=== PATIENT | male | born 1990 | race Caucasian/White ===

== ENCOUNTER 2016-11-03 12:40 | Inpatient (IN) | payer OTHER ==
[2016-11-03 12:54] VITALS: BMI 23.7
[2016-11-03] MEDS ORDERED: diazePAM 5 MG TABLET PO SCH (22:00)
--- NOTE | 2016-11-03 22:25 | HP ---
COWS - Scale Resting Pulse: 1= [place] 81-100 Sweatin=Flushed/Facial Moisture Restless Observation: 1= Difficult to Sit Still Pupil Size: 0= Normal to Room Light Bone or Joint Aches: 1= Mild Discomfort Runny Nose/ Eye Tearin= Runny Nose/Eyes GI Upset > 30mins: 1= Stomach Cramp Tremor Observation: 2= Slight Tremor Visible Yawning Observation: 1= 1-2x During Session Anxiety or Irritability: 4=Extreme Anxiety Goose Flesh Skin: 3=Piloerection COWS Score: 18 CIWA Score - CIWA Score Nausea/Vomitin Muscle Tremors: 3 Anxiety: 4-Mod. Anxious/Guarded Agitation: 4-Moderately Restless Paroxysmal Sweats: 1-Minimal Palms Moist Orientation: 1-Uncertain about Date Tacttile Disturbances: 0-None Auditory Disturbances: 0-None Visual Disturbances: 0-None Headache: 1-Very Mild CIWA-Ar Total Score: 16 Admission ROS BHS - HPI Chief Complaint: WITHDRAWAL SYMPTOMS Allergies/Adverse Reactions: Allergies Allergy/AdvReac Type Severity Reaction Status Date / Time No Known Allergies Allergy Verified 11/03/16 22:23 History of Present Illness: 26 Y.O. MAN WITH A 5 YEAR HISTORY OF ALCOHOL AND DRUG DEPENDENCE IS SEEKING DETOX. HE WAS AT [facility] FOR DETOX OVER THE WEEKEND BUT DID NOT COMPLETE TREATMENT. Exam Limitations: No Limitations - Ebola screening Have you traveled outside of the country in the last 21 days: No Have you been sick,other than usual withdrawal symptoms: No - Review of Systems Constitutional: Chills, Night Sweats, Changes in sleep EENT: reports: Tearing, Nose Congestion, Dental Problems (CAVITY) Respiratory: reports: No Symptoms reported Cardiac: reports: No Symptoms Reported GI: reports: Poor Appetite : reports: Other (HESITANCY) Musculoskeletal: reports: Muscle Pain, Neck Pain Integumentary: reports: No Symptoms Reported Neuro: reports: Headache, Tremors Endocrine: reports: Excessive Sweating (OVERACTIVE THYROID) Hematology: reports: No Symptoms Reported Psychiatric: reports: Judgement Intact, Mood/Affect Appropiate, Anxious Other Systems: Reviewed and Negative Patient History - Patient Medical History Hx Anemia: No Hx Asthma: No Hx Chronic Obstructive Pulmonary Disease (COPD): No Hx Cancer: No Hx Cardiac Disorders: No Hx Congestive Heart Failure: No Hx Hypertension: No Hx Hypercholesterolemia: No Hx Pacemaker: No HX Cerebrovascular Accident: No Hx Seizures: No Hx Dementia: No Hx Diabetes: No Hx Gastrointestinal Disorders: No Hx Liver Disease: No Hx Genitourinary Disorders: No Hx Sexually Transmitted Disorders: No Hx Renal Disease (ESRD): No Hx Thyroid Disease: Yes (HYPERACTIVE THYROID;) Hx Human Immunodeficiency Virus (HIV): No (NEG ) Hx Hepatitis C: Yes (NOT TREATED ) Hx Depression: No (H/O ANXIETY ) Hx Suicide Attempt: No Hx Bipolar Disorder: No Hx Schizophrenia: No - Patient Surgical History Past Surgical History: No - PPD History Previous Implant?: Yes Documented Results: Negative w/o proof PPD to be Administered?: Yes - Reproductive History Patient is a Female of Child Bearing Age (11 -55 yrs old): No - Smoking Cessation Smoking history: Current some day smoker Have you smoked in the past 12 months: Yes Aproximately how many cigarettes per day: 3 Hx Chewing Tobacco Use: No Initiated information on smoking cessation: Yes 'Breaking Loose' booklet given: 11/03/16 - Substance & Tx. History Hx Alcohol Use: Yes Hx Substance Use: Yes Substance Use Type: Alcohol, Heroin, Tranquilizers Hx Substance Use Treatment: Yes (DETOX ) - Substances Abused Alcohol Route: Oral Frequency: Daily Amount used: 1 PINT LIQUOR Age of first use: 15 Date of Last Use: 10/27/16 Heroin Route: Injection Frequency: Daily Amount used: 5-10 BAGS Age of first use: 21 Date of Last Use: 11/03/16 Alprazolam (Xanax) Route: Oral Frequency: Daily Amount used: 4-6 STICKS Age of first use: 19 Date of Last Use: 11/02/16 Family Disease History - Family Disease History Family History: Denies Admission Physical Exam S - Vital Signs Vital Signs: Vital Signs - 24 hr 11/03/16 12:52 Temperature 97.9 F Pulse Rate 90 Respiratory 20 Rate Blood Pressure 112/73 - Physical General Appearance: Yes: Tremorous, Irritable, Anxious HEENTM: Yes: Hearing grossly Normal, Normocephalic, Normal Voice, Nasal Congestion Respiratory: Yes: Chest Non-Tender, Lungs Clear, Normal Breath Sounds, No Respiratory Distress, No Accessory Muscle Use Neck: Yes: No masses,lesions,Nodules, Trachea in good position Breast: Yes: Breast Exam Deferred Cardiology: Yes: Regular Rhythm, Regular Rate, S1, S2 Abdominal: Yes: Non Tender, Soft Genitourinary: Yes: Hesitency Back: Yes: Normal Inspection Musculoskeletal: Yes: Back pain Extremities: Yes: Tremors 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: Yes: Alert, Normal Mood/Affect, Normal Response Integumentary: Yes: Normal Color, Dry, Warm, Track Hay Lymphatic: Yes: Within Normal Limits - Diagnostic (1) Alcohol dependence with uncomplicated withdrawal Current Visit: Yes Status: Chronic (2) Opioid dependence with withdrawal Current Visit: Yes Status: Chronic (3) Sedative, hypnotic or anxiolytic dependence with withdrawal, uncomplicated Current Visit: Yes Status: Chronic Cleared for Admission [facility] - Detox or Rehab [facility] Level of Care: Medically Managed Detox Regimen/Protocol: Methadone/Valium [facility] Breath Alcohol Content Breath Alcohol Content: 0 Urine Drug Screen - Results Drug Screen Negative: No Urine Drug Screen Results: OPI-Opiates, MDMA-Ecstasy, BZO-Benzodiazepines, MTD- Methadone, TCA-Tricyclic Antidepress, OXY-Oxycodone
[2016-11-03] MEDS ORDERED: ACETAMINOPHEN 325 MG TABLET (FP) PO PRN (22:38)
[2016-11-03] MEDS ORDERED: MAGNESIUM CITRATE 300 ML BOTTLE PO PRN (22:38)
[2016-11-03] MEDS ORDERED: P-EPHED 60MG/TRIPROLIDI 2.5MG TABLET PO PRN (22:38)
[2016-11-03] MEDS ORDERED: guaiFENesin/D-METHORPHAN HB 10 ML UNIT-DOSE CUPS PO PRN (22:38)
[2016-11-03] MEDS ORDERED: diazePAM 5 MG TABLET PO PRN (22:38)
[2016-11-03] MEDS ORDERED: MAGNESIUM HYDROX 2400MG/30ML ORAL SUSPENSION 30 ML CUP PO PRN (22:38)
[2016-11-03] MEDS ORDERED: MAG HYDROX/AL HYDROX/SIMETH 30 ML UNIT-DOSE CUP PO PRN (22:38)
[2016-11-03] MEDS ORDERED: METHADONE HCL 10 MG TABLET (FOR DETOX USE ONLY) PO ONE ×2 (22:38→23:00)
[2016-11-03] MEDS ORDERED: IBUPROFEN 400 MG TABLET (FP) PO PRN (22:38)
[2016-11-03] MEDS ORDERED: diazePAM 5 MG TABLET PO ONE (22:38)
[2016-11-03] MEDS ORDERED: LOPERAMIDE HCL 2 MG CAPSULE PO PRN (22:38)
[2016-11-04] MEDS ORDERED: METHADONE HCL 10 MG TABLET (FOR DETOX USE ONLY) PO ONE ×3 (00:53→23:00)
[2016-11-04] MEDS ORDERED: diazePAM 5 MG TABLET PO ONE (00:53)
[2016-11-04] MEDS: diazePAM 5 MG TABLET PO SCH ×3 (05:41→22:12)
[2016-11-04] MEDS: diazePAM 5 MG TABLET PO PRN ×2 (08:58→17:27)
--- NOTE | 2016-11-04 09:53 | PN ---
[facility] CIWA - CIWA Score Nausea/Vomitin-No Nausea/No Vomiting Muscle Tremors: 4-Moderate,w/Arms Extend Anxiety: 4-Mod. Anxious/Guarded Agitation: 4-Moderately Restless Paroxysmal Sweats: 1-Minimal Palms Moist Orientation: 0-Oriented Tacttile Disturbances: 3-Moderate Itch/Numb/Burn Auditory Disturbances: 0-None Visual Disturbances: 0-None Headache: 0-None Present CIWA-Ar Total Score: 16 BHS COWS - Scale Resting Pulse: 0= [place] 80 or Below Sweatin=Flushed/Facial Moisture Restless Observation: 3= Extraneous Movement Pupil Size: 2= Moderately Dilated Bone or Joint Aches: 4=Acute Joint/Muscle Pain Runny Nose/ Eye Tearin= Nasal Congestion GI Upset > 30mins: 1= Stomach Cramp Tremor Observation of Outstretched Hands: 1= Tremor Falls, Not Seen Yawning Observation: 2= >3x During Session Anxiety or Irritability: 2=Irritable/Anxious Goose Flesh Skin: 0=Smooth Skin COWS Score: 18 S Progress Note (SOAP) Subjective: ANXIETY,SWEATS/CHILLS,FATIGUE. Objective: 11/04/16 09:53 Vital Signs Temperature 97.9 F 11/04/16 06:23 Pulse Rate 77 11/04/16 06:23 Respiratory Rate 16 11/04/16 06:23 Blood Pressure 108/74 11/04/16 06:23 O2 Sat by Pulse Oximetry (%) LABS PENDING Assessment: 11/04/16 09:53 WITHDRAWAL SX Plan: CONTINUE DETOX
[2016-11-04] MEDS ORDERED: METHADONE HCL 10 MG TABLET (FOR DETOX USE ONLY) PO SCH (10:00)
[2016-11-04] MEDS: PRENATAL VITAMINS W/ FOLIC ACID TABLET (FP) PO SCH (10:09)
[2016-11-04] MEDS: NICOTINE POLACRILEX 2 MG GUM BC PRN ×2 (10:11→15:14)
[2016-11-04 10:39] LABS: MCH 28.7 pg (25.7-33.7); MEAN CELL VOLUME 84.1 fl (80-96); MEAN PLT VOLUME 9.7 fl (7.5-11.1); PLATELET COUNT 224 K/MM3 (134-434); RDW 13.3 % (11.9-15.9); WHITE BLOOD COUNT 8.6 K/mm3 (4.0-10.0)
[2016-11-04 10:55] LABS: ALK PHOS 69 U/L (45-117); ANION GAP 5 (8-16); BILIRUBIN,TOTAL 1.5 mg/dL (0.2-1.0); CALCIUM 9.2 mg/dL (8.5-10.1); CO2 29 mmol/L (21-32); GLUCOSE,RANDOM 114 mg/dL (74-106); SGOT/AST 38 U/L (15-37); SGPT/ALT 91 U/L (12-78); TOT PROT 7.5 g/dl (6.4-8.2)
--- NOTE | 2016-11-04 11:45 | CONSULT ---
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 Substance Abuse History: Reports drinking since 15 years old (1 pint of hard liquors),heroin iv since [age] years old (5-10 bags daily) and Xanax since 19 years old (406 sticks daily).Longest abstinence -6 months. Medical History: Hep C,Hyperthyroidism. Psychiatric History: Denies psychiatric history,but reports some anxiety, sleeping difficulties on and off.He was prescribed Seroquel 50 mg po hs as needed while in outpatient rehab recently with good response. Physical/Sexual Abuse/Trauma History: denies Mental Status Exam - Mental Status Exam Alert and Oriented to: Time, Place, Person Cognitive Function: Grossly Intact Patient Appearance: Unkempt Mood: Sad Affect: Mood Congruent Patient Behavior: Cooperative Speech Pattern: Clear Voice Loudness: Normal Thought Process: Goal Oriented Thought Disorder: Not Present Hallucinations: Denies Suicidal Ideation: Denies Homicidal Ideation: Denies Insight/Judgement: Fair Sleep: Difficulty falling asleep Appetite: Good Muscle strength/Tone: Normal Gait/Station: Normal Psychiatric Findings - Problem List ([place] 1, 2,3) (1) Alcohol dependence with uncomplicated withdrawal Current Visit: Yes Status: Chronic (2) Opioid dependence with withdrawal Current Visit: Yes Status: Chronic (3) Sedative, hypnotic or anxiolytic dependence with withdrawal, uncomplicated Current Visit: Yes Status: Chronic (4) Substance induced mood disorder Current Visit: Yes Status: Chronic - Initial Treatment Plan Initial Treatment Plan: Seroquel 50 mg po hs.
--- NOTE | 2016-11-04 11:47 | EKG ---
Test Reason : Blood Pressure : / mmHG Vent. Rate : 057 BPM Atrial Rate : 057 BPM P-R Int : 144 ms QRS Dur : 088 ms QT Int : 436 ms P-R-T Axes : 035 055 052 degrees QTc Int : 424 ms SINUS BRADYCARDIA OTHERWISE NORMAL ECG NO PREVIOUS ECGS AVAILABLE Confirmed by SEAN PAULINO, KARINA ([id number]) on 11/04/2016 11:47:10 AM Referred By: Confirmed By:KARINA ESTRADA MD
[2016-11-04] MEDS: hydrOXYzine PAMOATE 50 MG CAPSULE (FP) PO PRN (13:43)
[2016-11-04] MEDS: THIAMINE HCL 100 MG TABLET (FP) PO SCH (22:12)
[2016-11-04] MEDS: QUEtiapine FUMARATE 50 MG TABLET PO SCH (22:12)
[2016-11-05] MEDS: diazePAM 5 MG TABLET PO SCH ×3 (05:37→22:19)
[2016-11-05] MEDS: diazePAM 5 MG TABLET PO PRN ×2 (08:46→17:29)
[2016-11-05] MEDS ORDERED: METHADONE HCL 5 MG TABLET (FOR DETOX USE ONLY) PO SCH (10:00)
[2016-11-05] MEDS ORDERED: METHADONE HCL 10 MG TABLET (FOR DETOX USE ONLY) PO SCH (10:00)
[2016-11-05] MEDS ORDERED: diazePAM 5 MG TABLET PO SCH (10:00)
--- NOTE | 2016-11-05 10:13 | PN ---
[facility] CIWA - CIWA Score Nausea/Vomitin-No Nausea/No Vomiting Muscle Tremors: 4-Moderate,w/Arms Extend Anxiety: 4-Mod. Anxious/Guarded Agitation: 4-Moderately Restless Paroxysmal Sweats: 1-Minimal Palms Moist Orientation: 0-Oriented Tacttile Disturbances: 3-Moderate Itch/Numb/Burn Auditory Disturbances: 0-None Visual Disturbances: 0-None Headache: 0-None Present CIWA-Ar Total Score: 16 BHS COWS - Scale Resting Pulse: 0= [place] 80 or Below Sweatin= Chills/Flushing Restless Observation: 3= Extraneous Movement Pupil Size: 2= Moderately Dilated Bone or Joint Aches: 4=Acute Joint/Muscle Pain Runny Nose/ Eye Tearin= Nasal Congestion GI Upset > 30mins: 1= Stomach Cramp Tremor Observation of Outstretched Hands: 2= Slight Tremor Visible Yawning Observation: 1= 1-2x During Session Anxiety or Irritability: 2=Irritable/Anxious Goose Flesh Skin: 0=Smooth Skin COWS Score: 17 S Progress Note (SOAP) Subjective: ANXIETY,SWEATS,FATIGUE. Objective: 11/05/16 10:13 Vital Signs Temperature 96.8 F L 11/05/16 10:12 Pulse Rate 74 11/05/16 10:12 Respiratory Rate 18 11/05/16 10:12 Blood Pressure 110/76 11/05/16 10:12 O2 Sat by Pulse Oximetry (%) Laboratory Last Values WBC 8.6 K/mm3 (4.0-10.0) 11/04/16 06:00 RBC 5.25 M/mm3 (4.00-5.60) 11/04/16 06:00 Hgb 15.0 GM/dL (11.7-16.9) 11/04/16 06:00 Hct 44.2 % (35.4-49) 11/04/16 06:00 MCV 84.1 fl (80-96) 11/04/16 06:00 MCHC 34.0 g/dl (32.0-35.9) 11/04/16 06:00 RDW 13.3 % (11.9-15.9) 11/04/16 06:00 Plt Count 224 K/MM3 (134-434) 11/04/16 06:00 MPV 9.7 fl (7.5-11.1) 11/04/16 06:00 Sodium 134 mmol/L (136-145) L 11/04/16 06:00 Potassium 4.0 mmol/L (3.5-5.1) 11/04/16 06:00 Chloride 100 mmol/L (98-107) 11/04/16 06:00 Carbon Dioxide 29 mmol/L (21-32) 11/04/16 06:00 Anion Gap 5 (8-16) L 11/04/16 06:00 BUN 10 mg/dL (7-18) 11/04/16 06:00 Creatinine 1.0 mg/dL (0.7-1.3) 11/04/16 06:00 Creat Clearance w eGFR > 60 (>60) 11/04/16 06:00 Random Glucose 114 mg/dL (74-106) H 11/04/16 06:00 Calcium 9.2 mg/dL (8.5-10.1) 11/04/16 06:00 Total Bilirubin 1.5 mg/dL (0.2-1.0) H 11/04/16 06:00 AST 38 U/L (15-37) H 11/04/16 06:00 ALT 91 U/L (12-78) H 11/04/16 06:00 Alkaline Phosphatase 69 U/L (45-117) 11/04/16 06:00 Total Protein 7.5 g/dl (6.4-8.2) 11/04/16 06:00 Albumin 4.0 g/dl (3.4-5.0) 11/04/16 06:00 RPR Titer Nonreactive (NONREACTIVE) 11/04/16 06:00 Assessment: 11/05/16 10:13 WITHDRAWAL SX Plan: CONTINUE DETOX
[2016-11-05] MEDS: PRENATAL VITAMINS W/ FOLIC ACID TABLET (FP) PO SCH (10:14)
[2016-11-05] MEDS: THIAMINE HCL 100 MG TABLET (FP) PO SCH (22:18)
[2016-11-05] MEDS: QUEtiapine FUMARATE 50 MG TABLET PO SCH (22:19)
[2016-11-05] MEDS: diphenhydrAMINE HCL 50 MG CAPSULE PO PRN (23:10)
[2016-11-06] MEDS: diazePAM 5 MG TABLET PO PRN ×3 (05:55→17:46)
[2016-11-06] MEDS: diazePAM 5 MG TABLET PO SCH ×2 (10:12→22:29)
[2016-11-06] MEDS: PRENATAL VITAMINS W/ FOLIC ACID TABLET (FP) PO SCH (10:12)
[2016-11-06] MEDS: METHADONE HCL 5 MG TABLET (FOR DETOX USE ONLY) PO SCH (10:12)
--- NOTE | 2016-11-06 10:36 | PN ---
S Progress Note (SOAP) Subjective: ANXIETY,FATIGUE, HEADACHE,INTERMITTENT SLEEP Objective: 11/06/16 10:36 Laboratory Last Values WBC 8.6 K/mm3 (4.0-10.0) 11/04/16 06:00 RBC 5.25 M/mm3 (4.00-5.60) 11/04/16 06:00 Hgb 15.0 GM/dL (11.7-16.9) 11/04/16 06:00 Hct 44.2 % (35.4-49) 11/04/16 06:00 MCV 84.1 fl (80-96) 11/04/16 06:00 MCHC 34.0 g/dl (32.0-35.9) 11/04/16 06:00 RDW 13.3 % (11.9-15.9) 11/04/16 06:00 Plt Count 224 K/MM3 (134-434) 11/04/16 06:00 MPV 9.7 fl (7.5-11.1) 11/04/16 06:00 Sodium 134 mmol/L (136-145) L 11/04/16 06:00 Potassium 4.0 mmol/L (3.5-5.1) 11/04/16 06:00 Chloride 100 mmol/L (98-107) 11/04/16 06:00 Carbon Dioxide 29 mmol/L (21-32) 11/04/16 06:00 Anion Gap 5 (8-16) L 11/04/16 06:00 BUN 10 mg/dL (7-18) 11/04/16 06:00 Creatinine 1.0 mg/dL (0.7-1.3) 11/04/16 06:00 Creat Clearance w eGFR > 60 (>60) 11/04/16 06:00 Random Glucose 114 mg/dL (74-106) H 11/04/16 06:00 Calcium 9.2 mg/dL (8.5-10.1) 11/04/16 06:00 Total Bilirubin 1.5 mg/dL (0.2-1.0) H 11/04/16 06:00 AST 38 U/L (15-37) H 11/04/16 06:00 ALT 91 U/L (12-78) H 11/04/16 06:00 Alkaline Phosphatase 69 U/L (45-117) 11/04/16 06:00 Total Protein 7.5 g/dl (6.4-8.2) 11/04/16 06:00 Albumin 4.0 g/dl (3.4-5.0) 11/04/16 06:00 RPR Titer Nonreactive (NONREACTIVE) 11/04/16 06:00 Vital Signs Temperature 96.1 F L 11/06/16 09:43 Pulse Rate 75 11/06/16 09:43 Respiratory Rate 18 11/06/16 09:43 Blood Pressure 98/67 11/06/16 09:43 O2 Sat by Pulse Oximetry (%) Assessment: 11/06/16 10:36 WITHDRAWAL SX Plan: CONTINUE DETOX
[2016-11-06] MEDS: MENTHOL/PHENOL 1 EACH UD MM PRN ×2 (12:57→17:46)
--- NOTE | 2016-11-06 15:08 | PN ---
Psychiatric Progress Note Vital Signs: Vital Signs Period Temp Pulse Resp BP Sys/Johnson Pulse Ox Last 24 Hr 96.0 F-97.5 F 66-77 16-19 93-113/60-76 Date of Session: 11/06/16 Chief Complaint:: "Sleep is still big problem and my mood is unstable." HPI: Patient addressed Alcohol,Opioid and Anxiolytic dependence comorbid with Substance induced mood disorder. ROS: Unremarkable. Current Medications: Active Medications Generic Name Dose Route Start Last Admin Trade Name Freq PRN Reason Stop Dose Admin Acetaminophen 650 mg 11/03/16 22:38 Tylenol - PO Q4H PRN FEVER OR PAIN Al Hydroxide/Mg Hydroxide 30 ml 11/03/16 22:38 Mylanta Oral Suspension - PO Q6H PRN DYSPEPSIA Diazepam 10 mg 11/04/16 00:53 11/06/16 12:56 Valium - PO 11/07/16 00:53 10 mg Q4H PRN Administration WITHDRAWAL(CONT SUBST) Diazepam 5 mg 11/06/16 10:00 11/06/16 10:12 Valium - PO 11/07/16 22:01 5 mg BID HODA Administration Diazepam 5 mg 11/08/16 10:00 Valium - PO 11/08/16 10:01 DAILY HODA Diphenhydramine HCl 50 mg 11/03/16 22:38 11/05/16 23:10 Benadryl - PO 50 mg HSMR1 PRN Administration INSOMNIA Eucalyptus/Menthol/Phenol/Sorbitol 1 each 11/03/16 22:38 11/06/16 12:57 Cepastat Lozenge - MM 1 each Q4H PRN Administration SORE THROAT Guaifenesin 10 ml 11/03/16 22:38 Robitussin Dm - PO Q6H PRN COUGH Hydroxyzine Pamoate 50 mg 11/03/16 22:38 11/04/16 13:43 Vistaril - PO 50 mg Q4H PRN Administration AGITATION Ibuprofen 400 mg 11/03/16 22:38 Motrin - PO Q6H PRN SEVERE PAIN Loperamide HCl 4 mg 11/03/16 22:38 Imodium - PO Q6H PRN DIARRHEA Magnesium Citrate 300 ml 11/03/16 22:38 Citroma - PO Q48H PRN CONSTIPATION Magnesium Hydroxide 30 ml 11/03/16 22:38 11/04/16 15:13 Milk Of Magnesia - PO 30 ml DAILY PRN Administration CONSTIPATION Methadone HCl 10 mg 11/08/16 10:00 Dolophine - PO 11/08/16 10:01 DAILY HODA Methadone HCl 15 mg 11/06/16 10:00 11/06/16 10:12 Dolophine - PO 11/07/16 10:01 15 mg DAILY HODA Administration Methadone HCl 5 mg 11/09/16 06:00 Dolophine - PO 11/09/16 06:01 DAILY@0600 HODA Nicotine Polacrilex 2 mg 11/03/16 22:38 11/04/16 15:14 Nicorette Gum - BC 2 mg Q2H PRN Administration NICOTINE REPLACEMENT RX Multivit/Folic Acid/Iron 1 tab 11/04/16 10:00 11/06/16 10:12 Vitamins (Sjr) - PO 1 tab DAILY HODA Administration Pseudoephedrine/Triprolidine 1 combo 11/03/16 22:38 Actifed - PO TID PRN NASAL CONGESTION Quetiapine Fumarate 100 mg 11/06/16 22:00 Seroquel - PO HS HODA Thiamine HCl 100 mg 11/04/16 22:00 11/05/16 22:18 Vitamin B1 - PO 100 mg HS HODA Administration Current Side Effect: No Lab tests ordered: No Lab tests reviewed: Yes Provider note:: Patient was reevaluated today due to ongoing anxiety,mood instability and insomnia.He reports that was prescribed Seroquel 200 mg po hs in the past with good response.Properties of Seroquel has been discussed with the patient including side effect profile,benefits and dose adjustment.Seroquel 50 mg po hs will be adjusted to 100 mg po hs. Psychoeducation,supportive therapy provided. Mental Status Exam - Mental Status Exam Alert and Oriented to: Time, Place, Person Cognitive Function: Grossly Intact Patient Appearance: Well Groomed Mood: Anxious Affect: Labile Patient Behavior: Cooperative Speech Pattern: Clear Voice Loudness: Normal Thought Process: Goal Oriented Thought Disorder: Not Present Hallucinations: Denies Suicidal Ideation: Denies Homicidal Ideation: Denies Insight/Judgement: Fair Sleep: Difficulty falling asleep Appetite: Good Muscle strength/Tone: Normal Gait/Station: Normal Psychiatric Treatment Plan - Problem List (1) Alcohol dependence with uncomplicated withdrawal Current Visit: Yes (2) Opioid dependence with withdrawal Current Visit: Yes (3) Sedative, hypnotic or anxiolytic dependence with withdrawal, uncomplicated Current Visit: Yes (4) Substance induced mood disorder Current Visit: Yes
[2016-11-06] MEDS: NICOTINE POLACRILEX 2 MG GUM BC PRN (19:59)
[2016-11-06] MEDS: QUEtiapine FUMARATE 100 MG TABLET (FP) PO SCH (22:29)
[2016-11-06] MEDS: THIAMINE HCL 100 MG TABLET (FP) PO SCH (22:29)
[2016-11-07] MEDS ORDERED: METHADONE HCL 10 MG TABLET (FOR DETOX USE ONLY) PO SCH (10:00)
[2016-11-07] MEDS ORDERED: diazePAM 5 MG TABLET PO SCH (10:00)
[2016-11-07] MEDS: diazePAM 5 MG TABLET PO SCH ×2 (10:10→22:25)
[2016-11-07] MEDS: METHADONE HCL 5 MG TABLET (FOR DETOX USE ONLY) PO SCH (10:10)
[2016-11-07] MEDS: PRENATAL VITAMINS W/ FOLIC ACID TABLET (FP) PO SCH (10:10)
[2016-11-07] MEDS: MENTHOL/PHENOL 1 EACH UD MM PRN ×2 (12:39→17:13)
[2016-11-07] MEDS: hydrOXYzine PAMOATE 50 MG CAPSULE (FP) PO PRN (17:14)
--- NOTE | 2016-11-07 19:10 | PN ---
S Progress Note (SOAP) Subjective: ANXIETY, INTERRUPTED SLEEP Objective: 11/07/16 19:09 Vital Signs - 8 hr 11/07/16 11/07/16 14:55 17:43 Temperature 96 F L 97.5 F L Pulse Rate 84 91 H Respiratory 18 18 Rate Blood Pressure 111/71 109/73 Laboratory Last Values WBC 8.6 K/mm3 (4.0-10.0) 11/04/16 06:00 RBC 5.25 M/mm3 (4.00-5.60) 11/04/16 06:00 Hgb 15.0 GM/dL (11.7-16.9) 11/04/16 06:00 Hct 44.2 % (35.4-49) 11/04/16 06:00 MCV 84.1 fl (80-96) 11/04/16 06:00 MCHC 34.0 g/dl (32.0-35.9) 11/04/16 06:00 RDW 13.3 % (11.9-15.9) 11/04/16 06:00 Plt Count 224 K/MM3 (134-434) 11/04/16 06:00 MPV 9.7 fl (7.5-11.1) 11/04/16 06:00 Sodium 134 mmol/L (136-145) L 11/04/16 06:00 Potassium 4.0 mmol/L (3.5-5.1) 11/04/16 06:00 Chloride 100 mmol/L (98-107) 11/04/16 06:00 Carbon Dioxide 29 mmol/L (21-32) 11/04/16 06:00 Anion Gap 5 (8-16) L 11/04/16 06:00 BUN 10 mg/dL (7-18) 11/04/16 06:00 Creatinine 1.0 mg/dL (0.7-1.3) 11/04/16 06:00 Creat Clearance w eGFR > 60 (>60) 11/04/16 06:00 Random Glucose 114 mg/dL (74-106) H 11/04/16 06:00 Calcium 9.2 mg/dL (8.5-10.1) 11/04/16 06:00 Total Bilirubin 1.5 mg/dL (0.2-1.0) H 11/04/16 06:00 AST 38 U/L (15-37) H 11/04/16 06:00 ALT 91 U/L (12-78) H 11/04/16 06:00 Alkaline Phosphatase 69 U/L (45-117) 11/04/16 06:00 Total Protein 7.5 g/dl (6.4-8.2) 11/04/16 06:00 Albumin 4.0 g/dl (3.4-5.0) 11/04/16 06:00 RPR Titer Nonreactive (NONREACTIVE) 11/04/16 06:00 LABS NOTED Assessment: 11/07/16 19:09 WITHDRAWAL SX Plan: CONTINUE DETOX
[2016-11-07] MEDS: THIAMINE HCL 100 MG TABLET (FP) PO SCH (22:24)
[2016-11-07] MEDS: QUEtiapine FUMARATE 100 MG TABLET (FP) PO SCH (22:25)
[2016-11-07] MEDS: diphenhydrAMINE HCL 50 MG CAPSULE PO PRN (22:25)
[2016-11-08] MEDS ORDERED: METHADONE HCL 5 MG TABLET (FOR DETOX USE ONLY) PO SCH (06:00)
[2016-11-08] MEDS ORDERED: METHADONE HCL 10 MG TABLET (FOR DETOX USE ONLY) PO SCH (10:00)
[2016-11-08] MEDS ORDERED: diazePAM 5 MG TABLET PO SCH (10:00)
[2016-11-08] MEDS: PRENATAL VITAMINS W/ FOLIC ACID TABLET (FP) PO SCH (10:16)
[2016-11-08] MEDS: MENTHOL/PHENOL 1 EACH UD MM PRN (10:17)
--- NOTE | 2016-11-08 13:47 | PN ---
BHS Progress Note (SOAP) Subjective: Anxiety, restless, sweating, headache (pain scale 5/10) Objective: 11/08/16 13:45 Last Vital Signs Temp Pulse Resp BP Pulse Ox 97 F L 83 20 111/77 11/08/16 11:29 11/08/16 11:29 11/08/16 11:29 11/08/16 11:29 Laboratory Tests 11/04/16 11/04/16 11/04/16 06:00 06:00 06:00 WBC 8.6 RBC 5.25 Hgb 15.0 Hct 44.2 MCV 84.1 MCHC 34.0 RDW 13.3 Plt Count 224 MPV 9.7 Sodium 134 L Potassium 4.0 Chloride 100 Carbon Dioxide 29 Anion Gap 5 L BUN 10 Creatinine 1.0 Creat Clearance w eGFR > 60 Random Glucose 114 H Calcium 9.2 Total Bilirubin 1.5 H AST 38 H ALT 91 H Alkaline Phosphatase 69 Total Protein 7.5 Albumin 4.0 RPR Titer Nonreactive Labs noted Assessment: 11/08/16 13:46 Withdrawal symptoms Plan: Continue detox
[2016-11-08 15:24] LABS: URINE APPEARANCE CLEAR; URINE BILIRUBIN NEGATIVE (NEGATIVE); URINE BLOOD NEGATIVE (NEGATIVE); URINE COLOR STRAW; URINE GLUCOSE (UA) NEGATIVE (NEGATIVE); URINE KETONE NEGATIVE (NEGATIVE); URINE LEUK ESTERASE NEGATIVE (NEGATIVE); URINE NITRITE NEGATIVE (NEGATIVE); URINE PROTEIN NEGATIVE (NEGATIVE); URINE UROBILINOGEN NEGATIVE E.U./dl (0.2-1.0)
[2016-11-08] MEDS: QUEtiapine FUMARATE 100 MG TABLET (FP) PO SCH (22:04)
[2016-11-08] MEDS: THIAMINE HCL 100 MG TABLET (FP) PO SCH (22:04)
[2016-11-08] MEDS: diphenhydrAMINE HCL 50 MG CAPSULE PO PRN (22:05)
[2016-11-09] MEDS ORDERED: METHADONE HCL 5 MG TABLET (FOR DETOX USE ONLY) PO SCH (06:00)
[2016-11-09 09:25] VITALS: BP 111/70; PULSE 105; TEMP 96
[2016-11-09] MEDS: PRENATAL VITAMINS W/ FOLIC ACID TABLET (FP) PO SCH (09:56)
--- NOTE | 2016-11-09 10:18 | DS ---
[facility] Detox Discharge Summary Admission Date: 11/03/16 Discharge Date: 11/09/16 - History Present History: Alcohol Dependence, Opioid Dependence, Sedative Dependence Pertinent Past History: MOOD DISORDER - Physical Exam Results Vital Signs: Vital Signs Temperature 96.0 F L 11/09/16 09:25 Pulse Rate 105 H 11/09/16 09:25 Respiratory Rate 20 11/09/16 09:25 Blood Pressure 111/70 11/09/16 09:25 O2 Sat by Pulse Oximetry (%) Pertinent Admission Physical Exam Findings: WITHDRAWAL SX. Laboratory Last Values WBC 8.6 K/mm3 (4.0-10.0) 11/04/16 06:00 RBC 5.25 M/mm3 (4.00-5.60) 11/04/16 06:00 Hgb 15.0 GM/dL (11.7-16.9) 11/04/16 06:00 Hct 44.2 % (35.4-49) 11/04/16 06:00 MCV 84.1 fl (80-96) 11/04/16 06:00 MCHC 34.0 g/dl (32.0-35.9) 11/04/16 06:00 RDW 13.3 % (11.9-15.9) 11/04/16 06:00 Plt Count 224 K/MM3 (134-434) 11/04/16 06:00 MPV 9.7 fl (7.5-11.1) 11/04/16 06:00 Sodium 134 mmol/L (136-145) L 11/04/16 06:00 Potassium 4.0 mmol/L (3.5-5.1) 11/04/16 06:00 Chloride 100 mmol/L (98-107) 11/04/16 06:00 Carbon Dioxide 29 mmol/L (21-32) 11/04/16 06:00 Anion Gap 5 (8-16) L 11/04/16 06:00 BUN 10 mg/dL (7-18) 11/04/16 06:00 Creatinine 1.0 mg/dL (0.7-1.3) 11/04/16 06:00 Creat Clearance w eGFR > 60 (>60) 11/04/16 06:00 Random Glucose 114 mg/dL (74-106) H 11/04/16 06:00 Calcium 9.2 mg/dL (8.5-10.1) 11/04/16 06:00 Total Bilirubin 1.5 mg/dL (0.2-1.0) H 11/04/16 06:00 AST 38 U/L (15-37) H 11/04/16 06:00 ALT 91 U/L (12-78) H 11/04/16 06:00 Alkaline Phosphatase 69 U/L (45-117) 11/04/16 06:00 Total Protein 7.5 g/dl (6.4-8.2) 11/04/16 06:00 Albumin 4.0 g/dl (3.4-5.0) 11/04/16 06:00 Urine Color Straw 11/08/16 13:00 Urine Appearance Clear 11/08/16 13:00 Urine pH 7.0 (5.0-8.0) 11/08/16 13:00 Ur Specific [place] 1.006 (1.001-1.035) 11/08/16 13:00 Urine Protein Negative (NEGATIVE) 11/08/16 13:00 Urine Glucose (UA) Negative (NEGATIVE) 11/08/16 13:00 Urine Ketones Negative (NEGATIVE) 11/08/16 13:00 Urine Blood Negative (NEGATIVE) 11/08/16 13:00 Urine Nitrite Negative (NEGATIVE) 11/08/16 13:00 Urine Bilirubin Negative (NEGATIVE) 11/08/16 13:00 Urine Urobilinogen Negative E.U./dl (0.2-1.0) 11/08/16 13:00 Ur Leukocyte Esterase Negative (NEGATIVE) 11/08/16 13:00 RPR Titer Nonreactive (NONREACTIVE) 11/04/16 06:00 LABS NOTED - Treatment Hospital Course: Detox Protocol Followed, Detoxed Safely, Responded well, Discharged Condition Good, Rehab Referral Accepted - Medication Discharge Medications: Ambulatory Orders Mirtazapine [Remeron -] 30 mg PO HS 11/04/16 Quetiapine Fumarate [Seroquel -] 50 mg PO HS #30 tablet 11/04/16 Quetiapine Fumarate [Seroquel -] 100 mg PO HS 11/04/16 - Diagnosis (1) Alcohol dependence with uncomplicated withdrawal Status: Chronic (2) Opioid dependence with withdrawal Status: Chronic (3) Sedative, hypnotic or anxiolytic dependence with withdrawal, uncomplicated Status: Chronic (4) Substance induced mood disorder Status: Chronic - AMA Did Patient Leave Against Medical Advice: No
== END 2016-11-09 09:59 | disposition home or self-care (01) | DRG 773 ==
LOC: YASAS 12:40 → Y3N 23:32
PROVIDERS: ADMIT Internal Medicine; ATTEND Internal Medicine
PROC: HZ2ZZZZ Detoxification Services for Substance Abuse Treatment (ICD-10-PCS; principal; 2016-11-03)
DX: F11.23 Opioid dependence with withdrawal (principal); F13.230 Sedative, hypnotic or anxiolytic dependence with withdrawal, uncomplicated; F10.230 Alcohol dependence with withdrawal, uncomplicated; F19.24 Other psychoactive substance dependence with psychoactive substance-induced mood disorder; E05.90 Thyrotoxicosis, unspecified without thyrotoxic crisis or storm; B18.2 Chronic viral hepatitis C; Z72.0 Tobacco use
CPT/HCPCS: 36415; 80053; 81003; 85027; 86593; 93005; 93010

== ENCOUNTER 2018-01-11 22:07 | Inpatient (IN) | payer OTHER ==
[~2018-01-11 22:07] MED LIST: MELATONIN 5 MG TABLETS PO PRN; diazePAM 5 MG TABLET PO SCH
[2018-01-11 22:44] VITALS: BMI 24.7
[2018-01-11] MEDS ORDERED: METHADONE HCL 10 MG TABLET (FOR DETOX USE ONLY) PO ONE ×2 (23:00→23:19)
--- NOTE | 2018-01-11 23:15 | HP ---
COWS - Scale Resting Pulse: 1= [place] 81-100 Sweatin=Flushed/Facial Moisture Restless Observation: 1= Difficult to Sit Still Pupil Size: 0= Normal to Room Light Bone or Joint Aches: 1= Mild Discomfort Runny Nose/ Eye Tearin= Runny Nose/Eyes GI Upset > 30mins: 1= Stomach Cramp Tremor Observation: 0= None Yawning Observation: 1= 1-2x During Session Anxiety or Irritability: 1=Feels Anxious/Irritable Goose Flesh Skin: 3=Piloerection COWS Score: 13 CIWA Score - CIWA Score Nausea/Vomitin Muscle Tremors: 2 Anxiety: 2 Agitation: 0-Normal Activity Paroxysmal Sweats: 3 Orientation: 1-Uncertain about Date Tacttile Disturbances: 0-None Auditory Disturbances: 0-None Visual Disturbances: 1-Very Mild Sensitivity Headache: 0-None Present CIWA-Ar Total Score: 12 Admission ROS S - HPI Chief Complaint: opiod and xanax withdrawal symptoms Allergies/Adverse Reactions: Allergies Allergy/AdvReac Type Severity Reaction Status Date / Time No Known Allergies Allergy Verified 11/03/16 22:23 History of Present Illness: 27 yo male with IV heroin and xanax dependence is here seeking detox. PMHX: insomnia,and anxiety denies any other medical or psychiatric problems. Hx of OD , last OD one year ago, denies hx of seizures or blackouts. Suicidal / homicidal ideation or suicide attempts. Last detox at [facility] 11/03/2016 -2016. Exam Limitations: No Limitations - Ebola screening Have you been sick,other than usual withdrawal symptoms: No - Review of Systems Constitutional: Chills, Changes in sleep EENT: reports: Other (runny nose) Respiratory: reports: No Symptoms reported Cardiac: reports: No Symptoms Reported GI: reports: No Symptoms Reported, Diarrhea, Nausea, Poor Appetite, Poor Fluid Intake, Abdominal cramping : reports: No Symptoms Reported Musculoskeletal: reports: Back Pain Integumentary: reports: No Symptoms Reported Neuro: reports: Weakness Endocrine: reports: Excessive Sweating, Increased Thirst Hematology: reports: No Symptoms Reported Psychiatric: reports: No Sypmtoms Reported, Orientated x3, Anxious Other Systems: Reviewed and Negative Patient History - Patient Medical History Hx Anemia: No Hx Asthma: No Hx Chronic Obstructive Pulmonary Disease (COPD): No Hx Cancer: No Hx Cardiac Disorders: No Hx Congestive Heart Failure: No Hx Hypertension: No Hx Hypercholesterolemia: No Hx Pacemaker: No HX Cerebrovascular Accident: No Hx Seizures: No Hx Dementia: No Hx Diabetes: No Hx Gastrointestinal Disorders: No Hx Liver Disease: No Hx Genitourinary Disorders: No Hx Sexually Transmitted Disorders: No Hx Renal Disease (ESRD): No Hx Thyroid Disease: Yes (HYPERACTIVE THYROID;) Hx Human Immunodeficiency Virus (HIV): No (NEG) Hx Hepatitis C: Yes (NOT TREATED ) Hx Depression: No (H/O ANXIETY ) Hx Suicide Attempt: No Hx Bipolar Disorder: No Hx Schizophrenia: No - Patient Surgical History Past Surgical History: No - PPD History Previous Implant?: Yes Documented Results: Negative w/proof Date: 11/06/16 PPD to be Administered?: Yes - Reproductive History Patient is a Female of Child Bearing Age (11 -55 yrs old): No - Smoking Cessation Smoking history: Former smoker Have you smoked in the past 12 months: No Hx Chewing Tobacco Use: No Initiated information on smoking cessation: No - Substance & Tx. History Hx Alcohol Use: No Substance Use Type: None, Heroin, Tranquilizers Hx Substance Use Treatment: Yes ([facility] 11/03/16 - 11/09/16) - Substances Abused Heroin Route: Injection Frequency: Daily Amount used: 10 Age of first use: 22 Date of Last Use: 01/10/18 Alprazolam (Xanax) Route: Oral Frequency: Daily Amount used: 2 -3 pills (6mg) Age of first use: 22 Date of Last Use: 01/10/18 Family Disease History - Family Disease History Family Disease History: Other: Father (alive and well ), Mother (alive and well ) Admission Physical Exam S - Vital Signs Vital Signs: Vital Signs - 24 hr 01/11/18 22:42 Temperature 97.1 F L Pulse Rate 83 Respiratory 18 Rate Blood Pressure 101/62 - Physical General Appearance: Yes: Within Normal Limits, No Apparent Distress, Appropriately Dressed, Mild Distress, Sweating, Anxious HEENTM: Yes: EOMI, Hearing grossly Normal, Normal ENT Inspection, Normocephalic , Normal Voice, LORETTA, Pharynx Normal, Tm's normal, Rhinorrhea Respiratory: Yes: Chest Non-Tender, Lungs Clear, Normal Breath Sounds, No Respiratory Distress, No Accessory Muscle Use Neck: Yes: No masses,lesions,Nodules, Trachea in good position Breast: Yes: Breast Exam Deferred Cardiology: Yes: Regular Rhythm, Regular Rate Abdominal: Yes: Normal Bowel Sounds, Non Tender, Flat, Soft Genitourinary: Yes: Within Normal Limits Back: Yes: Normal Inspection Musculoskeletal: Yes: full range of Motion, Gait Steady, Pelvis Stable Extremities: Yes: Normal Capillary Refill, Normal Inspection, Normal Range of Motion, Non-Tender 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: 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: 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 NML intact, Fully Oriented, Alert, Motor Strength 5/5, Normal Response, Depressed Affect Integumentary: Yes: Normal Color, Warm, Moist, Track Hay (on bilateral fore arms in multiple healing states, no signs of infectio) Lymphatic: Yes: Within Normal Limits - Diagnostic (1) Diarrhea Current Visit: Yes Status: Acute (2) Difficulty sleeping Current Visit: Yes Status: Acute (3) Opioid dependence with withdrawal Current Visit: No Status: Chronic (4) Sedative, hypnotic or anxiolytic dependence with withdrawal, uncomplicated Current Visit: No Status: Chronic (5) IV drug user Current Visit: Yes Status: Acute Cleared for Admission [facility] - Detox or Rehab [facility] Level of Care: Medically Managed Detox Regimen/Protocol: Methadone/Valium [facility] Breath Alcohol Content Breath Alcohol Content: 0 Urine Drug Screen - Results Drug Screen Negative: No Urine Drug Screen Results: OPI-Opiates, BZO-Benzodiazepines
[2018-01-11] MEDS ORDERED: MAGNESIUM CITRATE 300 ML BOTTLE PO PRN (23:19)
[2018-01-11] MEDS ORDERED: diazePAM 5 MG TABLET PO PRN (23:19)
[2018-01-11] MEDS ORDERED: ACETAMINOPHEN 325 MG TABLET (FP) PO PRN (23:19)
[2018-01-11] MEDS ORDERED: hydrOXYzine PAMOATE 50 MG CAPSULE (FP) PO PRN (23:19)
[2018-01-11] MEDS ORDERED: MAG HYDROX/AL HYDROX/SIMETH 30 ML UNIT-DOSE CUP PO PRN (23:19)
[2018-01-11] MEDS ORDERED: guaiFENesin/D-METHORPHAN HB 10 ML UNIT-DOSE CUPS PO PRN (23:19)
[2018-01-11] MEDS ORDERED: MAGNESIUM HYDROX 2400MG/30ML ORAL SUSPENSION 30 ML CUP PO PRN (23:19)
[2018-01-11] MEDS ORDERED: MENTHOL/PHENOL 1 EACH UD MM PRN (23:19)
[2018-01-11] MEDS ORDERED: LOPERAMIDE HCL 2 MG CAPSULE PO PRN (23:19)
[2018-01-11] MEDS ORDERED: P-EPHED 60MG/TRIPROLIDI 2.5MG TABLET PO PRN (23:19)
[2018-01-11] MEDS ORDERED: diazePAM 5 MG TABLET PO ONE (23:19)
[2018-01-12] MEDS ORDERED: METHADONE HCL 10 MG TABLET (FOR DETOX USE ONLY) PO ONE ×3 (01:05→23:00)
[2018-01-12] MEDS ORDERED: diazePAM 5 MG TABLET PO ONE (01:05)
[2018-01-12 02:04] LABS: URINE APPEARANCE CLEAR; URINE BILIRUBIN NEGATIVE (<2.0 mg/dL); URINE BLOOD NEGATIVE (NEGATIVE); URINE COLOR YELLOW; URINE GLUCOSE (UA) NEGATIVE (NEGATIVE); URINE KETONE NEGATIVE (NEGATIVE); URINE LEUK ESTERASE NEGATIVE (NEGATIVE); URINE NITRITE NEGATIVE (NEGATIVE); URINE PROTEIN NEGATIVE (NEGATIVE); URINE UROBILINOGEN NEGATIVE mg/dL (0.2-1.0)
[2018-01-12] MEDS: diazePAM 5 MG TABLET PO SCH ×3 (05:29→22:11)
[2018-01-12] MEDS ORDERED: ONDANSETRON *ODT* 4 MG TABLET SL PRN (09:06)
[2018-01-12] MEDS ORDERED: METHADONE HCL 10 MG TABLET (FOR DETOX USE ONLY) PO SCH (10:00)
[2018-01-12] MEDS: PRENATAL VITAMINS W/ FOLIC ACID TABLET (FP) PO SCH (10:09)
[2018-01-12] MEDS: diazePAM 5 MG TABLET PO PRN ×2 (10:09→17:31)
[2018-01-12 10:17] LABS: HEMATOCRIT 38.1 % (35.4-49); HEMOGLOBIN 12.8 GM/dL (11.7-16.9); MCH 28.7 pg (25.7-33.7); MCHC 33.6 g/dl (32.0-35.9); MEAN CELL VOLUME 85.4 fl (80-96); MEAN PLT VOLUME 9.1 fl (7.5-11.1); PLATELET COUNT 197 K/MM3 (134-434); RBC 4.46 M/mm3 (4.00-5.60); RDW 14.1 % (11.9-15.9)
[2018-01-12 10:24] LABS: CHLORIDE 107 mmol/L (98-107); SODIUM 143 mmol/L (136-145)
[2018-01-12 10:42] LABS: ALK PHOS 65 U/L (45-117); ANION GAP 6 (8-16); BILIRUBIN,TOTAL 1.1 mg/dL (0.2-1.0); BLOOD UREA NITROGEN 9 mg/dL (7-18); CALCIUM 8.6 mg/dL (8.5-10.1); CO2 30 mmol/L (21-32); CREATININE 0.9 mg/dL (0.7-1.3); GLUCOSE,RANDOM 101 mg/dL (74-106); SGOT/AST 33 U/L (15-37); SGPT/ALT 82 U/L (12-78)
--- NOTE | 2018-01-12 10:50 | PN ---
[facility] CIWA - CIWA Score Nausea/Vomitin (N/V/D) Muscle Tremors: 2 Anxiety: 4-Mod. Anxious/Guarded Agitation: 3 Paroxysmal Sweats: 2 Orientation: 0-Oriented Tacttile Disturbances: 3-Moderate Itch/Numb/Burn Auditory Disturbances: 0-None Visual Disturbances: 0-None Headache: 0-None Present CIWA-Ar Total Score: 19 [facility] COWS - Scale Resting Pulse: 0= [place] 80 or Below Sweatin= Chills/Flushing Restless Observation: 3= Extraneous Movement Pupil Size: 2= Moderately Dilated Bone or Joint Aches: 4=Acute Joint/Muscle Pain Runny Nose/ Eye Tearin= Nasal Congestion GI Upset > 30mins: 3= Vomiting/Diarrhea Tremor Observation of Outstretched Hands: 1= Tremor [place], Not Seen Yawning Observation: 1= 1-2x During Session Anxiety or Irritability: 1=Feels Anxious/Irritable Goose Flesh Skin: 0=Smooth Skin COWS Score: 17 S Progress Note (SOAP) Subjective: ANXIETY,HOT/COLD CHILLS,NAUSEA,VOMITING,DIARRHEA,MUSCLE ACHES, INTERMITTENT SLEEP. Objective: 01/12/18 10:49 Vital Signs Temperature 96.9 F L 01/12/18 09:13 Pulse Rate 69 01/12/18 09:13 Respiratory Rate 18 01/12/18 09:13 Blood Pressure 114/62 01/12/18 09:13 O2 Sat by Pulse Oximetry (%) Laboratory Last Values WBC 5.0 K/mm3 (4.0-10.0) D 01/12/18 07:30 RBC 4.46 M/mm3 (4.00-5.60) 01/12/18 07:30 Hgb 12.8 GM/dL (11.7-16.9) D 01/12/18 07:30 Hct 38.1 % (35.4-49) 01/12/18 07:30 MCV 85.4 fl (80-96) 01/12/18 07:30 MCH 28.7 pg (25.7-33.7) 01/12/18 07:30 MCHC 33.6 g/dl (32.0-35.9) 01/12/18 07:30 RDW 14.1 % (11.9-15.9) 01/12/18 07:30 Plt Count 197 K/MM3 (134-434) 01/12/18 07:30 MPV 9.1 fl (7.5-11.1) 01/12/18 07:30 Urine Color Yellow 01/11/18 23:54 Urine Appearance Clear 01/11/18 23:54 Urine pH 6.0 (5.0-8.0) 01/11/18 23:54 Ur Specific [place] 1.017 (1.001-1.035) 01/11/18 23:54 Urine Protein Negative (NEGATIVE) 01/11/18 23:54 Urine Glucose (UA) Negative (NEGATIVE) 01/11/18 23:54 Urine Ketones Negative (NEGATIVE) 01/11/18 23:54 Urine Blood Negative (NEGATIVE) 01/11/18 23:54 Urine Nitrite Negative (NEGATIVE) 01/11/18 23:54 Urine Bilirubin Negative (<2.0 mg/dL) 01/11/18 23:54 Urine Urobilinogen Negative mg/dL (0.2-1.0) 01/11/18 23:54 Ur Leukocyte Esterase Negative (NEGATIVE) 01/11/18 23:54 Assessment: 01/12/18 10:49 WITHDRAWAL SX Plan: CONTINUE DETOX ZOFRAN DIRECTED IMODIUM PRN FLUIDS TOLERATED
--- NOTE | 2018-01-12 10:53 | EKG ---
Test Reason : Blood Pressure : / mmHG Vent. Rate : 054 BPM Atrial Rate : 054 BPM P-R Int : 152 ms QRS Dur : 082 ms QT Int : 448 ms P-R-T Axes : 036 048 052 degrees QTc Int : 424 ms SINUS BRADYCARDIA WITH SINUS ARRHYTHMIA OTHERWISE NORMAL ECG WHEN COMPARED WITH ECG OF 04-NOV-2016 02:08, NO SIGNIFICANT CHANGE WAS FOUND Confirmed by KARINA ESTRADA MD ([id number]) on 01/12/2018 10:53:14 AM Referred By: Confirmed By:KARINA ESTRADA MD
--- NOTE | 2018-01-12 12:22 | CONSULT ---
[facility] Psychiatric Consult - Data Date of interview: 01/12/18 Admission source: [facility] Identifying data: Readmission to [facility] [place] for this 27 y/o [place] for heroin and benzodiazepine dependence.Patient is single without children,domiciled, unemployed and supported by relatives. Substance Abuse History: Discussed with patient.Mr Pacheco confirms a 5+ year history of xanax and heroin abuse. Deails in current [facility] report : Smoking history: Former smoker. Have you smoked in the past 12 months: No. Hx Chewing Tobacco Use: No. Initiated information on smoking cessation: No. - Substance & Tx. History. Hx Alcohol Use: No. Substance Use Type: None, Heroin, Tranquilizers. Hx Substance Use Treatment: Yes ([facility] 11/03/16 - 11/09/16). - Substances Abused. Heroin. Route: Injection. Frequency: Daily. Amount used: 10. Age of first use: 22. Date of Last Use: 01/10/18. Alprazolam ( Xanax). Route: Oral. Frequency: Daily. Amount used: 2 -3 pills (6mg). Age of first use: 22. Date of Last Use: 01/10/18 Medical History: Hepatitis C and thyroid issues. Psychiatric History: Patient denies history of psychiatric hospitalizations or suicide attempts.[facility] [place] (no show for past month).Diagnosed with Anxiety Disorder.Mr Pacheco is prescribed remeron 30 mg/hs for chronic insomnia. Physical/Sexual Abuse/Trauma History: Patient denies. Additional Comment: Urine Drug Screen Results: OPI-Opiates, BZO- Benzodiazepines.Noted. Mental Status Exam - Mental Status Exam Alert and Oriented to: Time, Place, Person Cognitive Function: Good Patient Appearance: Well Groomed Mood: Nervous, Withdrawn, Hopeful Affect: Mood Congruent Patient Behavior: Fatigued, Appropriate, Cooperative Speech Pattern: Clear, Appropriate Voice Loudness: Normal Thought Process: Intact, Goal Oriented Thought Disorder: Not Present Hallucinations: Denies Suicidal Ideation: Denies Homicidal Ideation: Denies Insight/Judgement: Poor Sleep: Poorly, Difficulty falling asleep Appetite: Good Psychiatric Findings - Problem List ([place]iva 1, 2,3) (1) Opioid dependence with withdrawal Current Visit: Yes Status: Acute (2) Sedative, hypnotic or anxiolytic dependence with withdrawal, uncomplicated Current Visit: Yes Status: Acute (3) Substance induced mood disorder Current Visit: Yes Status: Acute (4) Insomnia Current Visit: Yes Status: Acute - Initial Treatment Plan Initial Treatment Plan: Psychoeducation.Sleep hygiene.Detoxification in progress.Medication : remeron 15 mg po hs.Side efects/benefits discussed with patient.Mr Pacheco agrees with this careplan.Observation.
[2018-01-12] MEDS: IBUPROFEN 400 MG TABLET (FP) PO PRN (17:33)
[2018-01-12] MEDS ORDERED: COLLOIDAL OATMEAL 1 BAR EACH TP PRN (18:47)
[2018-01-12] MEDS ORDERED: ALBUTEROL SO4 2.5/IPRATROPIUM 0.5 INH SOL 3 ML VIAL.NEB. NEB PRN (18:48)
[2018-01-12] MEDS: NICOTINE POLACRILEX 2 MG GUM BUC PRN (19:38)
[2018-01-12] MEDS ORDERED: BACITRACIN 15 GM TUBE TOPICAL OINTMENT TP SCH (22:00)
[2018-01-12] MEDS: MIRTAZAPINE 15 MG TABLET (FP) PO SCH (22:11)
[2018-01-12] MEDS: THIAMINE HCL 100 MG TABLET (FP) PO SCH (22:11)
[2018-01-13] MEDS: diazePAM 5 MG TABLET PO SCH ×3 (05:31→22:08)
[2018-01-13] MEDS: diazePAM 5 MG TABLET PO PRN ×3 (08:24→17:39)
[2018-01-13] MEDS: PRENATAL VITAMINS W/ FOLIC ACID TABLET (FP) PO SCH (09:41)
[2018-01-13] MEDS ORDERED: METHADONE HCL 5 MG TABLET (FOR DETOX USE ONLY) PO SCH (10:00)
[2018-01-13] MEDS ORDERED: diazePAM 5 MG TABLET PO SCH (10:00)
[2018-01-13] MEDS ORDERED: METHADONE HCL 10 MG TABLET (FOR DETOX USE ONLY) PO SCH (10:00)
--- NOTE | 2018-01-13 10:39 | PN ---
[facility] CIWA - CIWA Score Nausea/Vomitin-Mild Nausea/No Vomiting Muscle Tremors: 2 Anxiety: 4-Mod. Anxious/Guarded Agitation: 3 Paroxysmal Sweats: 1-Minimal Palms Moist Orientation: 0-Oriented Tacttile Disturbances: 3-Moderate Itch/Numb/Burn Auditory Disturbances: 0-None Visual Disturbances: 0-None Headache: 0-None Present CIWA-Ar Total Score: 14 S COWS - Scale Resting Pulse: 0= [place] 80 or Below Sweatin= Chills/Flushing Restless Observation: 3= Extraneous Movement Pupil Size: 0= Normal to Room Light Bone or Joint Aches: 4=Acute Joint/Muscle Pain Runny Nose/ Eye Tearin= None GI Upset > 30mins: 0= None Tremor Observation of Outstretched Hands: 1= Tremor [place], Not Seen Yawning Observation: 1= 1-2x During Session Anxiety or Irritability: 2=Irritable/Anxious Goose Flesh Skin: 0=Smooth Skin COWS Score: 12 S Progress Note (SOAP) Subjective: ANXIETY,SWEATS, COLD/HOT FLASHES. Objective: 01/13/18 10:38 Vital Signs Temperature 98.4 F 01/13/18 09:24 Pulse Rate 52 L 01/13/18 09:24 Respiratory Rate 18 01/13/18 09:24 Blood Pressure 103/76 01/13/18 09:24 O2 Sat by Pulse Oximetry (%) Laboratory Last Values WBC 5.0 K/mm3 (4.0-10.0) D 01/12/18 07:30 RBC 4.46 M/mm3 (4.00-5.60) 01/12/18 07:30 Hgb 12.8 GM/dL (11.7-16.9) D 01/12/18 07:30 Hct 38.1 % (35.4-49) 01/12/18 07:30 MCV 85.4 fl (80-96) 01/12/18 07:30 MCH 28.7 pg (25.7-33.7) 01/12/18 07:30 MCHC 33.6 g/dl (32.0-35.9) 01/12/18 07:30 RDW 14.1 % (11.9-15.9) 01/12/18 07:30 Plt Count 197 K/MM3 (134-434) 01/12/18 07:30 MPV 9.1 fl (7.5-11.1) 01/12/18 07:30 Sodium 143 mmol/L (136-145) 01/12/18 07:30 Potassium 4.0 mmol/L (3.5-5.1) 01/12/18 07:30 Chloride 107 mmol/L (98-107) 01/12/18 07:30 Carbon Dioxide 30 mmol/L (21-32) 01/12/18 07:30 Anion Gap 6 (8-16) L 01/12/18 07:30 BUN 9 mg/dL (7-18) 01/12/18 07:30 Creatinine 0.9 mg/dL (0.7-1.3) 01/12/18 07:30 Creat Clearance w eGFR > 60 (>60) 01/12/18 07:30 Random Glucose 101 mg/dL (74-106) 01/12/18 07:30 Calcium 8.6 mg/dL (8.5-10.1) 01/12/18 07:30 Total Bilirubin 1.1 mg/dL (0.2-1.0) H D 01/12/18 07:30 AST 33 U/L (15-37) 01/12/18 07:30 ALT 82 U/L (12-78) H 01/12/18 07:30 Alkaline Phosphatase 65 U/L (45-117) 01/12/18 07:30 Total Protein 6.0 g/dl (6.4-8.2) L 01/12/18 07:30 Albumin 3.0 g/dl (3.4-5.0) L D 01/12/18 07:30 Urine Color Yellow 01/11/18 23:54 Urine Appearance Clear 01/11/18 23:54 Urine pH 6.0 (5.0-8.0) 01/11/18 23:54 Ur Specific [place] 1.017 (1.001-1.035) 01/11/18 23:54 Urine Protein Negative (NEGATIVE) 01/11/18 23:54 Urine Glucose (UA) Negative (NEGATIVE) 01/11/18 23:54 Urine Ketones Negative (NEGATIVE) 01/11/18 23:54 Urine Blood Negative (NEGATIVE) 01/11/18 23:54 Urine Nitrite Negative (NEGATIVE) 01/11/18 23:54 Urine Bilirubin Negative (<2.0 mg/dL) 01/11/18 23:54 Urine Urobilinogen Negative mg/dL (0.2-1.0) 01/11/18 23:54 Ur Leukocyte Esterase Negative (NEGATIVE) 01/11/18 23:54 RPR Titer Nonreactive (NONREACTIVE) 01/12/18 07:30 Assessment: 01/13/18 10:38 WITHDRAWAL SX Plan: CONTINUE DETOX INCREASE PO FLUIDS
[2018-01-13] MEDS: NICOTINE POLACRILEX 2 MG GUM BUC PRN (14:05)
[2018-01-13] MEDS: MIRTAZAPINE 15 MG TABLET (FP) PO SCH (22:08)
[2018-01-13] MEDS: THIAMINE HCL 100 MG TABLET (FP) PO SCH (22:08)
[2018-01-14] MEDS: diazePAM 5 MG TABLET PO PRN ×3 (08:29→20:02)
[2018-01-14] MEDS ORDERED: METHADONE HCL 5 MG TABLET (FOR DETOX USE ONLY) PO SCH (10:00)
[2018-01-14] MEDS: PRENATAL VITAMINS W/ FOLIC ACID TABLET (FP) PO SCH (10:10)
[2018-01-14] MEDS: diazePAM 5 MG TABLET PO SCH ×2 (10:10→22:28)
[2018-01-14] MEDS: IBUPROFEN 400 MG TABLET (FP) PO PRN (10:12)
--- NOTE | 2018-01-14 10:31 | PN ---
[facility] Progress Note (SOAP) Subjective: ALERT O X 3. PT OOB WITH STEADY GAIT. REPORTS N/V/D RESOLVED. C/O SLIGHT ANXIETY ,HOT/COLD FLASHES AND GOOSE BUMPS. REQUESTING HIV SCREENING TODAY. Objective: 01/14/18 10:29 Vital Signs Temperature 97.9 F 01/14/18 09:10 Pulse Rate 72 01/14/18 09:10 Respiratory Rate 16 01/14/18 09:10 Blood Pressure 130/90 01/14/18 09:10 O2 Sat by Pulse Oximetry (%) Laboratory Last Values WBC 5.0 K/mm3 (4.0-10.0) D 01/12/18 07:30 RBC 4.46 M/mm3 (4.00-5.60) 01/12/18 07:30 Hgb 12.8 GM/dL (11.7-16.9) D 01/12/18 07:30 Hct 38.1 % (35.4-49) 01/12/18 07:30 MCV 85.4 fl (80-96) 01/12/18 07:30 MCH 28.7 pg (25.7-33.7) 01/12/18 07:30 MCHC 33.6 g/dl (32.0-35.9) 01/12/18 07:30 RDW 14.1 % (11.9-15.9) 01/12/18 07:30 Plt Count 197 K/MM3 (134-434) 01/12/18 07:30 MPV 9.1 fl (7.5-11.1) 01/12/18 07:30 Sodium 143 mmol/L (136-145) 01/12/18 07:30 Potassium 4.0 mmol/L (3.5-5.1) 01/12/18 07:30 Chloride 107 mmol/L (98-107) 01/12/18 07:30 Carbon Dioxide 30 mmol/L (21-32) 01/12/18 07:30 Anion Gap 6 (8-16) L 01/12/18 07:30 BUN 9 mg/dL (7-18) 01/12/18 07:30 Creatinine 0.9 mg/dL (0.7-1.3) 01/12/18 07:30 Creat Clearance w eGFR > 60 (>60) 01/12/18 07:30 Random Glucose 101 mg/dL (74-106) 01/12/18 07:30 Calcium 8.6 mg/dL (8.5-10.1) 01/12/18 07:30 Total Bilirubin 1.1 mg/dL (0.2-1.0) H D 01/12/18 07:30 AST 33 U/L (15-37) 01/12/18 07:30 ALT 82 U/L (12-78) H 01/12/18 07:30 Alkaline Phosphatase 65 U/L (45-117) 01/12/18 07:30 Total Protein 6.0 g/dl (6.4-8.2) L 01/12/18 07:30 Albumin 3.0 g/dl (3.4-5.0) L D 01/12/18 07:30 Urine Color Yellow 01/11/18 23:54 Urine Appearance Clear 01/11/18 23:54 Urine pH 6.0 (5.0-8.0) 01/11/18 23:54 Ur Specific [place] 1.017 (1.001-1.035) 01/11/18 23:54 Urine Protein Negative (NEGATIVE) 01/11/18 23:54 Urine Glucose (UA) Negative (NEGATIVE) 01/11/18 23:54 Urine Ketones Negative (NEGATIVE) 01/11/18 23:54 Urine Blood Negative (NEGATIVE) 01/11/18 23:54 Urine Nitrite Negative (NEGATIVE) 01/11/18 23:54 Urine Bilirubin Negative (<2.0 mg/dL) 01/11/18 23:54 Urine Urobilinogen Negative mg/dL (0.2-1.0) 01/11/18 23:54 Ur Leukocyte Esterase Negative (NEGATIVE) 01/11/18 23:54 RPR Titer Nonreactive (NONREACTIVE) 01/12/18 07:30 Assessment: 01/14/18 10:30 WITHDRAWAL SX Plan: CONTINUE DETOX ORAQUICK SCREENING BLOOD TEST TODAY.
[2018-01-14] MEDS: MIRTAZAPINE 15 MG TABLET (FP) PO SCH (22:28)
[2018-01-14] MEDS: THIAMINE HCL 100 MG TABLET (FP) PO SCH (22:28)
[2018-01-15] MEDS ORDERED: METHADONE HCL 10 MG TABLET (FOR DETOX USE ONLY) PO SCH ×2 (10:00)
[2018-01-15] MEDS ORDERED: diazePAM 5 MG TABLET PO SCH (10:00)
[2018-01-15] MEDS: diazePAM 5 MG TABLET PO SCH ×2 (10:25→22:19)
[2018-01-15] MEDS: PRENATAL VITAMINS W/ FOLIC ACID TABLET (FP) PO SCH (10:25)
--- NOTE | 2018-01-15 17:00 | PN ---
[facility] Progress Note (SOAP) Subjective: Sweating, Anxious. Objective: PATIENT A & O X 3, OBSERVED AMBULATING ON UNIT. NO ACUTE DISTRESS. 01/15/18 16:58 Vital Signs Temperature 96.9 F L 01/15/18 13:57 Pulse Rate 87 01/15/18 13:57 Respiratory Rate 20 01/15/18 13:57 Blood Pressure 104/76 01/15/18 13:57 O2 Sat by Pulse Oximetry (%) Laboratory Tests 01/11/18 01/12/18 01/12/18 23:54 07:30 07:30 WBC 5.0 D RBC 4.46 Hgb 12.8 D Hct 38.1 MCV 85.4 MCH 28.7 MCHC 33.6 RDW 14.1 Plt Count 197 MPV 9.1 Sodium 143 Potassium 4.0 Chloride 107 Carbon Dioxide 30 Anion Gap 6 L BUN 9 Creatinine 0.9 Creat Clearance w eGFR > 60 Random Glucose 101 Calcium 8.6 Total Bilirubin 1.1 H D AST 33 ALT 82 H Alkaline Phosphatase 65 Total Protein 6.0 L Albumin 3.0 L D Urine Color Yellow Urine Appearance Clear Urine pH 6.0 Ur Specific [place] 1.017 Urine Protein Negative Urine Glucose (UA) Negative Urine Ketones Negative Urine Blood Negative Urine Nitrite Negative Urine Bilirubin Negative Urine Urobilinogen Negative Ur Leukocyte Esterase Negative RPR Titer HIV 1&2 Antibody Screen HIV P24 Antigen 01/12/18 01/14/18 07:30 11:40 WBC RBC Hgb Hct MCV MCH MCHC RDW Plt Count MPV Sodium Potassium Chloride Carbon Dioxide Anion Gap BUN Creatinine Creat Clearance w eGFR Random Glucose Calcium Total Bilirubin AST ALT Alkaline Phosphatase Total Protein Albumin Urine Color Urine Appearance Urine pH Ur Specific [place] Urine Protein Urine Glucose (UA) Urine Ketones Urine Blood Urine Nitrite Urine Bilirubin Urine Urobilinogen Ur Leukocyte Esterase RPR Titer Nonreactive HIV 1&2 Antibody Screen Negative HIV P24 Antigen Negative LABS NOTED. Assessment: 01/15/18 16:59 WITHDRAWAL SYMPTOMS. Plan: CONTINUE DETOX. INCREASE DAILY PO FLUID INTAKE. PATIENT REPORTS THAT CURRENT DETOX SYMPTOMS ARE MINIMAL AND THAT HE FEELS WELL OVERALL. AT PATIENT'S REQUEST, CURRENT DETOX MEDICATION REGIMEN MODIFIED SO THAT PATIENT MAY BE DISCHARGED FROM DETOX UNIT ON 01/16/2018.
--- NOTE | 2018-01-15 19:19 | PN ---
[facility] Progress Note Note: Psychiatry Attending's flight reservations manager note : Met with patient. Complaint : insomnia. Remeron is raised to 30 mg po hs. Patient agrees with this careplan.
[2018-01-15] MEDS ORDERED: MIRTAZAPINE 30 MG TABLET (FP) PO SCH (22:00)
[2018-01-15] MEDS: THIAMINE HCL 100 MG TABLET (FP) PO SCH (22:19)
[2018-01-16] MEDS ORDERED: METHADONE HCL 5 MG TABLET (FOR DETOX USE ONLY) PO SCH ×2 (06:00)
[2018-01-16 06:17] VITALS: BP 114/63; PULSE 65; TEMP 96.6
--- NOTE | 2018-01-16 09:15 | DS ---
[facility] Detox Discharge Summary Admission Date: 01/11/18 Discharge Date: 01/16/18 - History Present History: Alcohol Dependence, Opioid Dependence, Sedative Dependence - Physical Exam Results Vital Signs: Vital Signs Temperature 96.6 F L 01/16/18 06:16 Pulse Rate 65 01/16/18 06:16 Respiratory Rate 16 01/16/18 06:30 Blood Pressure 114/63 01/16/18 06:16 O2 Sat by Pulse Oximetry (%) - Treatment Hospital Course: Detox Protocol Followed, Detoxed Safely, Responded well, Discharged Condition Good, Rehab Referral Accepted - Medication Discharge Medications: Ambulatory Orders Quetiapine Fumarate [Seroquel -] 50 mg PO HS #30 tablet 11/04/16 Mirtazapine [Remeron -] 30 mg PO HS #30 tablet 01/15/18 - Diagnosis (1) Alcohol dependence with uncomplicated withdrawal Status: Chronic (2) Diarrhea Status: Acute Qualifiers: Diarrhea type: unspecified type Qualified Code(s): R19.7 - Diarrhea, unspecified (3) Difficulty sleeping Status: Acute (4) IV drug user Status: Acute (5) Insomnia Status: Acute (6) Opioid dependence with withdrawal Status: Chronic (7) Sedative, hypnotic or anxiolytic dependence with withdrawal, uncomplicated Status: Acute (8) Substance induced mood disorder Status: Acute - AMA Did Patient Leave Against Medical Advice: No
[2018-01-16] MEDS ORDERED: diazePAM 5 MG TABLET PO SCH (10:00)
[2018-01-16] MEDS ORDERED: METHADONE HCL 10 MG TABLET (FOR DETOX USE ONLY) PO SCH (10:00)
[2018-01-17] MEDS ORDERED: METHADONE HCL 5 MG TABLET (FOR DETOX USE ONLY) PO SCH (06:00)
== END 2018-01-16 09:11 | disposition home or self-care (01) | DRG 773 ==
LOC: YASAS 22:07 → Y3N 23:24
PROVIDERS: ADMIT Internal Medicine; ATTEND Internal Medicine
PROC: HZ2ZZZZ Detoxification Services for Substance Abuse Treatment (ICD-10-PCS; principal; 2018-01-11)
DX: F11.23 Opioid dependence with withdrawal (principal); F13.230 Sedative, hypnotic or anxiolytic dependence with withdrawal, uncomplicated; F10.230 Alcohol dependence with withdrawal, uncomplicated; F19.24 Other psychoactive substance dependence with psychoactive substance-induced mood disorder; F41.9 Anxiety disorder, unspecified; G47.00 Insomnia, unspecified; B18.2 Chronic viral hepatitis C; E05.90 Thyrotoxicosis, unspecified without thyrotoxic crisis or storm
CPT/HCPCS: 36415; 80053; 81003; 85027; 86593; 87389; 93005; 93010